=== PATIENT | female | born 1950 | race Asian ===

== ENCOUNTER 2018-05-23 09:56 | Outpatient (CLI) | payer OTHER ==
--- NOTE | 2018-05-23 11:43 | Diagnostic Imaging Report ---
Indication: Right upper quadrant pain and discomfort Technique: Ornelas-scale and duplex images of the upper abdomen were obtained. Doppler interrogation of the hepatic and pancreatic vessels Comparison: none Findings: The gallbladder fossa anatomy is unusual. 2 structures are seen within the gallbladder fossa. One of these is a fluid-filled structure without a definite wall, containing a small mobile nonshadowing focus. Adjacent to it, posterior to segments 2 and 3 of the liver, is a broad area demonstrating multiple echogenic foci anteriorly with dense posterior shadowing which does not appear to be contiguous with any enteric structures. It is located somewhat medial to the expected normal position of the gallbladder, however. There is also small cyst in the dome of the left lobe Common bile duct measures 5 mm in diameter. No intrahepatic biliary ductal dilatation. Liver demonstrates increased echogenicity diffusely. There is slight hepatic surface nodularity. The liver is enlarged. Portal vein and hepatic veins are patent. Pancreas is unremarkable. Spleen is unremarkable, demonstrates a small accessory splenule versus prominent focal lobulation. Left kidney measures 11.1 cm in length. Right kidney measures 11.1 cm length. Both kidneys demonstrate normal echogenicity. There is no hydronephrosis. No focal abnormality . Non-aneurysmal abdominal aorta . Impression: Enlarged liver. Increased hepatic echogenicity is consistent with hepatocellular disease, possibly fatty change among other possibilities. Slight hepatic surface nodularity raises concern for early cirrhotic changes Unusual findings in the gallbladder fossa, as described. It is possible that the prominent structure with shadowing represents a distended stone filled gallbladder in a more medial than usual location, and the adjacent fluid structure represents a superficial hepatic cyst. The other possibility is that the fluid filled structure represents a somewhat unusual appearing gallbladder with a small mobile calculus, and that the larger shadowing structure represents stomach, colon, or other enteric structure behind the left hepatic lobe. If there is clinical concern for gallbladder disease, CT may be useful to clarify Negative for dilated bile ducts Incidental finding small hepatic cyst in the dome of the left lobe
== END 2018-05-23 11:56 | disposition home or self-care (01) ==
LOC: ULS 09:56
DX: R10.11 Right upper quadrant pain (principal); K76.89 Other specified diseases of liver; K76.0 Fatty (change of) liver, not elsewhere classified
CPT/HCPCS: 76700